=== PATIENT | female | born 1955 | race African-American/Black ===

== ENCOUNTER 2022-03-20 12:42 | Outpatient (CLI) | payer OTHER, SELFPAY | END 2022-03-20 12:43 | disposition home or self-care (01) | LOC: ANHAUDIO 12:45 | PROVIDERS: PCP Otolaryngology; Referring Provider Otolaryngology; Visit Provider Otolaryngology | DX: H90.5 Unspecified sensorineural hearing loss (principal) | CPT/HCPCS: 92557; 92567 ==